=== PATIENT | male | born 1945 | race American Indian/Alaskan Native ===

== ENCOUNTER 2021-10-06 07:04 | Outpatient (CLI) | payer MEDICARE ==
--- NOTE | 2021-10-06 08:25 | Cat Scan Report ---
CT ABDOMEN AND PELVIS WITHOUT CONTRAST HISTORY: C61 MALIGNANT NEOPLASM OF PROSTATE. COMPARISON: None. TECHNIQUE: CT images of the abdomen and pelvis were obtained without administration of intravenous co ntrast. All CT scans at this location are performed using CT dose reduction for ALARA by means of au tomated exposure control. FINDINGS: Lungs/bones: No focal consolidation is seen. Questionable minimal interstitial prominence and inters titial nodularity in the lower lungs. No dominant nodule or mass. Abdomen/pelvis: Multiple hypodense lesions are scattered throughout the liver. The largest hypodense lesion measures 8.3 cm. Small hiatal hernia is noted. Spleen, adrenal glands and pancreas appear nor mal. Gallbladder is unremarkable. Multiple bilateral renal cysts. There is extensive colonic divertic ulosis throughout the colon. No focal inflammatory changes seen. The appendix is upper limits of norm al in size without surrounding inflammatory change. There may be some calcifications within the proxi mal appendix suggesting appendicoliths. Urinary bladder is not completely distended. Prostate is slig htly enlarged with some mild surrounding inflammation. No dominant adenopathy is seen. Degenerative changes seen throughout spine. Mild curvature is noted IMPRESSION: 1. Multiple cysts within the liver and the kidneys as described above. 2. No definite evidence for metastatic disease 3. Clonic diverticulosis 4. Degenerative changes seen throughout spine. Signer Name: Fili Hayes MD Signed: 10/06/2021 8:21 AM Workstation Name: [email or web address]
== END 2021-10-06 07:05 | disposition home or self-care (01) ==
LOC: CT 07:04
PROVIDERS: ATTEND Urology
DX: C61 Malignant neoplasm of prostate (principal); N28.1 Cyst of kidney, acquired; K44.9 Diaphragmatic hernia without obstruction or gangrene; K57.30 Diverticulosis of large intestine without perforation or abscess without bleeding; K76.89 Other specified diseases of liver; M47.819 Spondylosis without myelopathy or radiculopathy, site unspecified
CPT/HCPCS: 74176